=== PATIENT | female | born 1975 | race Caucasian/White ===

== ENCOUNTER 2018-02-28 14:37 | Emergency (ER) | payer SELFPAY ==
[2018-02-28 16:00] LABS: Urine Appearance Clear; Urine Blood Negative (Negative); Urine Color Colorless; Urine Ketones Negative (Negative); Urine Protein Negative (Negative); Urine Specific Gravity 1.003 (1.010-1.030); Urine Urobilinogen Negative (Negative)
[2018-02-28 17:46] LABS: ABS Basophils 0.1 10^3/ul (0-0.2); ABS Eosinophils 0.4 10^3/ul (0-0.6); ABS Lymphocytes 2.8 10^3/ul (1.0-4.8); ABS Monocytes 0.6 10^3/ul (0-0.8); ABS Neutrophils 4.4 10^3/ul (1.5-7.7); ABS Nucleated RBC 0 10^3/ul; Eosinophil % 4.3 % (0-6); Hematocrit 40 % (35-47); Hemoglobin 13.5 g/dl (12.0-16.0); Lymphocyte % 33.5 % (25-47); Mean Corpuscular HGB Conc 34 g/dl (31-36); Mean Corpuscular Hemoglobin 30 pg (27-31); Mean Corpuscular Volume 90 fL (80-97); Mean Platelet Volume 8.1 um3 (7.4-10.4); Nucleated Red Blood Cells % 0.1; Platelet Count 231 10^3/ul (150-450); Red Blood Count 4.46 10^6/ul (4.00-5.40); Red Cell Distribution Width 13 % (10.5-15); White Blood Count 8.2 10^3/ul (3.5-10.8)
[2018-02-28] MEDS ORDERED: Iohexol 300* (CONTRAST) 10 ML SDV IV ONE (18:18)
--- NOTE | 2018-02-28 19:56 | RAD ---
EXAM: CT Abdomen and Pelvis With Intravenous Contrast CLINICAL HISTORY: 42 years old, female; Pain; Abdominal pain; Additional info: Abdo pain TECHNIQUE: Axial computed tomography images of the abdomen and pelvis with intravenous contrast. All CT scans at this facility use at least one of these dose optimization techniques: automated exposure control; mA and/or kV adjustment per patient size (includes targeted exams where dose is matched to clinical indication); or iterative reconstruction. Coronal and sagittal reformatted images were created and reviewed. CONTRAST: 117 mL of OMNIPAQUE 300 administered intravenously. COMPARISON: OT HIP RT HIP RIGHT 2 VIEWS AND PELVIS 10/23/2015 4:04 PM FINDINGS: Lung bases: Unremarkable. No mass. No consolidation. Mediastinum: There is a small hiatal hernia. ABDOMEN: Liver: There is hepatomegaly. Gallbladder and bile ducts: Unremarkable. No calcified stones. No ductal dilation. Pancreas: Unremarkable. No mass. No ductal dilation. Spleen: There is a 5 mm low attenuation lesion of the spleen that is too small to characterize. Adrenals: Unremarkable. No mass. Kidneys and ureters: There are a few 6 mm or less low attenuation lesions of the kidneys that are too small to characterize. No hydronephrosis. Stomach and bowel: There is colonic diverticulosis without evidence for acute diverticulitis. No obstruction. PELVIS: Appendix: The appendix is not visible. Bladder: Unremarkable. No mass. Reproductive: There is a 1.5 cm involuting follicle or cyst in the left ovary. There are postoperative changes of hysterectomy. ABDOMEN and PELVIS: Intraperitoneal space: Unremarkable. No free air. No significant fluid collection. Bones/joints: There are degenerative changes of the spine. No acute fracture. No dislocation. Soft tissues: Unremarkable. Vasculature: There are atherosclerotic aortic and iliac artery calcifications. No abdominal aortic aneurysm. Lymph nodes: Unremarkable. No enlarged lymph nodes. IMPRESSION: 1. There is a small hiatal hernia. 2. There is a 1.5 cm involuting follicle or cyst in the left ovary. 3. There is colonic diverticulosis without evidence for acute diverticulitis. 4. No other acute CT pathology.
[2018-02-28] MEDS ORDERED: HYDROcodone/ACETAMIN 5-325 MG* 1 TAB PO ONE (21:14)
--- NOTE | 2018-02-28 21:17 | ED ---
Abdominal Pain/Female - HPI Summary HPI Summary: Patient complains of chronic abdominal pain over worse than upper 1 month. Abdominal pain described as burning, cramping, associated with occasional diarrhea and nausea, pain with urination. Patient has seen FOOD STAND MANAGER 5 days ago with no formal diagnosis. Patient saw urologist 6 days ago and bladder infection and UTI were ruled out. Patient has appointment with GI in March, but states she can't wait due to pain. Denies fever, cough, sore throat, CP, SOB, V's vomiting, vaginal symptoms. Medical history is alcoholic cirrhosis. Patient states former alcoholic for 12 years, stopped 6 weeks ago. No anti- coag. Abdominal/pelvic surgical history is appendectomy, partial hysterectomy. - History of Current Complaint Chief Complaint: EDAbdPain Stated Complaint: ABD PAIN Time Seen by Provider: 02/28/18 16:59 Hx Obtained From: Patient ?: No Onset/Duration: Gradual Onset Timing: Intermittent Episode Lasting Severity Initially: Moderate Severity Currently: Moderate Pain Intensity: 8 Pain Scale Used: 0-10 Numeric Location: Diffuse Radiates: No Character: Sharp, Burning, Cramping Aggravating Factor(s): Nothing Alleviating Factor(s): Nothing Associated Signs and Symptoms: Positive: Urinary Symptoms, Nausea Allergies/Adverse Reactions: Allergies Allergy/AdvReac Type Severity Reaction Status Date / Time Sulfa (Sulfonamide Allergy Hives Verified 02/28/18 14:45 Antibiotics) zolpidem [From Ambien] Allergy Hallucinati Verified 02/28/18 14:45 ons Home Medications: Home Medications Conjugated Estrogens VAG CM* [Premarin VAG CREAM*] 1 applic VAGINAL DAILY [History Confirmed 02/28/18] Estradiol VAGINAL TAB(NF) [Vagifem] 10 mcg VAGINAL SEE INSTRUCTIONS 02/28/18 [ History Confirmed 02/28/18] Gabapentin CAP(*) [Neurontin 300 CAP(*)] 300 mg PO DAILY 02/28/18 [History Confirmed 02/28/18] Omeprazole CAP* [Prilosec CAP* 20 MG] 20 mg PO DAILY 02/28/18 [History Confirmed 02/28/18] PMH/Surg Hx/FS Hx/Imm Hx Endocrine/Hematology History: Denies: Hx Anticoagulant Therapy, Hx Diabetes Cardiovascular History: Denies: Hx Cardiac Arrest, Hx Hypertension, Hx Pacemaker/ICD GI History: Reports: Hx Cirrhosis History: Denies: Hx Dialysis, Hx Renal Disease Musculoskeletal History: Denies: Hx Rheumatoid Arthritis, Hx Osteoporosis Sensory History: Denies: Hx Hearing Aid Neurological History: Reports: Hx CVA Psychiatric History: Denies: Hx Panic Disorder - Surgical History Surgery Procedure, Year, and Place: carpal tunnel both, fallopian tubes, appy 8 to 10 yrs ago. Infectious Disease History: No Infectious Disease History: Denies: Traveled Outside the [place] in Last 30 Days - Social History Alcohol Use: None Alcohol Amount: last drink 6 weeks ago, hx etoh abuse Substance Use Type: Reports: None Smoking Status (MU): Former Smoker Review of Systems Constitutional: Negative Eyes: Negative ENT: Negative Cardiovascular: Negative Respiratory: Negative Positive: Abdominal Pain, Nausea Positive: burning Musculoskeletal: Negative Skin: Negative Neurological: Negative Psychological: Normal All Other Systems Reviewed And Are Negative: Yes Physical Exam - Summary Physical Exam Summary: Tenderness in right lower quadrant. Vital Signs On Initial Exam: Initial Vitals Temp Pulse Resp BP Pulse Ox 98.2 F 76 16 126/76 99 02/28/18 14:40 02/28/18 14:40 02/28/18 14:40 02/28/18 14:40 02/28/18 14:40 Diagnostics - Vital Signs Vital Signs Temp Pulse Resp BP Pulse Ox 02/28/18 19:16 71 118/81 100 02/28/18 19:00 74 99 02/28/18 18:38 78 105/71 94 02/28/18 18:00 75 100 02/28/18 17:56 71 146/88 100 02/28/18 17:26 77 141/89 100 02/28/18 17:00 64 99 02/28/18 16:57 68 124/69 100 02/28/18 16:56 71 100 02/28/18 14:40 98.2 F 76 16 126/76 99 - Laboratory Lab Results: Lab Results 02/28/18 02/28/18 02/28/18 Range/Units 15:23 17:38 17:38 WBC 8.2 (3.5-10.8) 10^3/ul RBC 4.46 (4.00-5.40) 10^6/ul Hgb 13.5 (12.0-16.0) g/dl Hct 40 (35-47) % MCV 90 (80-97) fL MCH 30 (27-31) pg MCHC 34 (31-36) g/dl RDW 13 (10.5-15) % Plt Count 231 (150-450) 10^3/ul MPV 8.1 (7.4-10.4) um3 Neut % (Auto) 53.7 (38-83) % Lymph % (Auto) 33.5 (25-47) % [place] % (Auto) 7.8 H (0-7) % Eos % (Auto) 4.3 (0-6) % Baso % (Auto) 0.7 (0-2) % Absolute Neuts (auto) 4.4 (1.5-7.7) 10^3/ul Absolute Lymphs (auto) 2.8 (1.0-4.8) 10^3/ul Absolute Monos (auto) 0.6 (0-0.8) 10^3/ul Absolute Eos (auto) 0.4 (0-0.6) 10^3/ul Absolute Basos (auto) 0.1 (0-0.2) 10^3/ul Absolute Nucleated RBC 0 10^3/ul Nucleated RBC % 0.1 Sodium 137 (135-145) mmol/L Potassium 3.7 (3.5-5.0) mmol/L Chloride 105 (101-111) mmol/L Carbon Dioxide 24 (22-32) mmol/L Anion Gap 8 (2-11) mmol/L BUN 12 (6-24) mg/dL Creatinine 0.65 (0.51-0.95) mg/dL Est GFR ( Amer) 119.8 (>60) Est GFR (Non-Af Amer) 99.0 (>60) BUN/Creatinine Ratio 18.5 (8-20) Glucose 115 H (70-100) mg/dL Calcium 9.5 (8.6-10.3) mg/dL Total Bilirubin 0.30 (0.2-1.0) mg/dL AST 23 (13-39) U/L ALT 54 H (7-52) U/L Alkaline Phosphatase 56 (34-104) U/L C-Reactive Protein 3.61 (<8.01) mg/L Total Protein 7.3 (6.4-8.9) g/dL Albumin 4.5 (3.2-5.2) g/dL Globulin 2.8 (2-4) g/dL Albumin/Globulin Ratio 1.6 (1-3) Lipase 22 (11.0-82.0) U/L Beta HCG, Quant < 0.60 mIU/mL Urine Color Colorless Urine Appearance Clear Urine pH 7.0 (5-9) Ur Specific [place] 1.003 L (1.010-1.030) Urine Protein Negative (Negative) Urine Ketones Negative (Negative) Urine Blood Negative (Negative) Urine Nitrate Negative (Negative) Urine Bilirubin Negative (Negative) Urine Urobilinogen Negative (Negative) Ur Leukocyte Esterase Negative (Negative) Urine Glucose Negative (Negative) Result Diagrams: 02/28/18 17:38 02/28/18 17:38 Lab Statement: Any lab studies that have been ordered have been reviewed, and results considered in the medical decision making process. - CT ab/pel w CT Interpretation: No Acute Changes - Small hiatal hernia. 1.5 mm follicle or cyst left ovary. No other Abdominal Pain Fem Course/Dx - Course Course Of Treatment: Patient complains of chronic abdominal pain over worse than upper 1 month. Abdominal pain described as burning, cramping, associated with occasional diarrhea and nausea, pain with urination. Patient has seen OB/ POOL PLAYER 5 days ago with no formal diagnosis. Patient saw urologist 6 days ago and bladder infection and UTI were ruled out. Patient has appointment with GI in March, but states she can't wait due to pain. Denies fever, cough, sore throat, CP, SOB, V's vomiting, vaginal symptoms. Medical history is alcoholic cirrhosis. Patient states former alcoholic for 12 years, stopped 6 weeks ago. No anti-coag. Abdominal/pelvic surgical history is appendectomy, partial hysterectomy. Physical exam:Tenderness in right lower quadrant. Vital signs within normal limits. CT abdomen and pelvis unremarkable except for left ovarian cyst. Labs unremarkable. Follow-up with GI. - Diagnoses Provider Diagnoses: Abdominal pain Discharge - Sign-Out/Discharge Documenting (check all that apply): Patient Departure - Discharge Plan Condition: Stable Disposition: HOME Prescriptions: HYDROcodone/ACETAMIN 5-325 MG* [[place] 5-325 TAB*] 1 tab PO Q6H PRN 2 Days #6 tab MDD 4 tabs PRN Reason: Pain Patient Education Materials: Abdominal Pain (ED) Referrals: Huan Perez MD [Primary Care Provider] - Additional Instructions: Follow-up with gastroenterology. Return to the ED for any new or worsening symptoms - Billing Disposition and Condition Condition: STABLE Disposition: Home
[2018-02-28 22:05] VITALS: BP 126/74
== END 2018-02-28 22:10 | disposition home or self-care (01) ==
LOC: ED 14:37
DX: R10.9 Unspecified abdominal pain (principal); G89.29 Other chronic pain; R10.813 Right lower quadrant abdominal tenderness; K70.30 Alcoholic cirrhosis of liver without ascites; R19.7 Diarrhea, unspecified; R11.0 Nausea; R30.0 Dysuria; Z87.891 Personal history of nicotine dependence; Z90.89 Acquired absence of other organs; Z90.710 Acquired absence of both cervix and uterus; Z88.0 Allergy status to penicillin; Z88.8 Allergy status to other drugs, medicaments and biological substances
CPT/HCPCS: 36415; 74177; 80053; 81003; 83690; 84702; 85025; 86140; 99284; Q9967